=== PATIENT | male | born 1955 | race Caucasian/White ===

== ENCOUNTER 2021-09-25 08:58 | Emergency (ER) | payer BC, SELFPAY ==
[2021-09-25 08:59] VITALS: BP 153/85; PULSE 63; RESP 16; TEMP 36.8; O2SAT 100
--- NOTE | 2021-09-25 09:03 | ECG_ITS ---
Measurements Intervals [place] Rate: 69 P: 22 IL: 158 QRS: -1 QRSD: 84 T: 69 QT: 400 QTc: 429 Interpretive Statements SINUS RHYTHM WITH FREQUENT VENTRICULAR PREMATURE COMPLEXES IN A BIGEMINAL PATTERN ST DEVIATION AND MODERATE T-WAVE ABNORMALITY, CONSIDER LATERAL ISCHEMIA [-0.1+ mV T WAVE IN I/aVL/V5/V6] ABNORMAL ECG NO PREVIOUS ECG AVAILABLE FOR COMPARISON Electronically Signed On 09-25-2021 17:57:12 CDT by Mickey Bustamante M.D.
--- NOTE | 2021-09-25 09:15 | ED.ARRPALP ---
HPI - Arrhythmia/Palpitations General Chief Complaint: Arrhythmia/Palpitations Stated Complaint: Bigemeny Time Seen by Provider: 09/25/21 09:06 Source: patient History of Present Illness HPI narrative: 66-year-old male presents today from GI Lab. Patient was there to have a colonoscopy when he noted his pulse rate ranged from the 30s to the 70s. On their monitor patient showed bigeminy. Patient then sent here to the ER. Patient currently without any complaints. Denies shortness of breath, chest pain, jaw pain. Patient has noted he seems to be a little bit tired lately. Patient medical history includes hypertension and high cholesterol. Related Data Home Medications Medication Instructions Recorded Confirmed amlodipine-benazepril 1 cap PO DAILY 09/25/21 09/25/21 pravastatin 40 mg PO DAILY 09/25/21 09/25/21 Allergies Allergy/AdvReac Type Severity Reaction Status Date / Time No Known Allergies Allergy Verified 09/25/21 09:02 Review of Systems Review of Systems: CONSTITUTIONAL: Denies fever, chills, or sweats. seems more tired than usually. states he can fall asleep at work sitting down. EYES: Denies visual changes, redness, or discharge. ENT: Denies rhinorrhea, congestion, sore throat, or otalgia. CARDIOVASCULAR: Denies chest pain, palpitations, or edema. RESPIRATORY: Denies cough or dyspnea. GASTROINTESTINAL: Denies abdominal pain, nausea, vomiting, or diarrhea. GENITOURINARY: Denies dysuria or hematuria. SKIN: Denies rash or itching. MUSCULOSKELETAL: Denies back pain, joint pain, or myalgia. NEUROLOGIC: Denies headache, numbness, dizziness, or weakness. PSYCHIATRIC: Denies anxiety or depression. [facility] Social History Social History Smoking status: Never smoker Alcohol intake: current Substance use: never Substance use type: does not use Spiritual care concerns: No Exam Narrative: GENERAL: Well-appearing, well-nourished, and in no acute distress. HEAD: Normocephalic, atraumatic. EYES: PERRLA and EOMI. ENT: Nares clear, no rhinorrhea or epistaxis. Mucous membranes moist. Oropharynx without tonsillar hypertrophy exudate or other lesions. Bilateral TMs pearly patrick nonbulging NECK: Supple. No adenopathy or masses. No carotid bruits or JVD CHEST: Clear to auscultation. No respiratory distress. No wheezes rales or rhonchi HEART: Irregular rate and rhythm. No murmur heard. Normal peripheral pulses. ABDOMEN: Soft, nontender, nondistended, normal active bowel sounds. EXTREMITIES: Normal range of motion. No edema. SKIN: Warm, dry, no rash. NEURO: No focal deficits. Alert and oriented x3. PSYCH: Normal mood and affect. Course [employer]/PA Physician Supervision Labs reviewed. Patient says his bilirubin is always high. He is aware we are working on seeing if he can have his colonoscopy done. 1034 Patient aware colonoscopy will need to be rescheduled. Consultations Consultation #1: DR. Bustamante called. Case reviewed. At this time Dr. Bustamante is comfortable with the decision the ER makes. He says with asymptomatic bigimeny there was no need for him to see him at this time unless things changed. Date: 09/25/21 Time: 10:00 Vital Signs Vital signs: Vital Signs Temperature 36.8 C 09/25/21 08:59 Pulse Rate 63 09/25/21 08:59 Respiratory Rate 16 09/25/21 08:59 Blood Pressure 153/85 H 09/25/21 08:59 Pulse Oximetry 100 09/25/21 08:59 Temperature 36.8 C 09/25/21 08:59 Pulse Rate 70 09/25/21 10:47 Respiratory Rate 23 H 09/25/21 10:47 Blood Pressure 140/88 09/25/21 10:47 Pulse Oximetry 98 09/25/21 10:47 MDM - Arrhythmia/Palpitations MDM Narrative Medical decision making narrative: 66-year-old male HPI as noted. Presents today with intermittent bigeminy. Patient denies chest pain, shortness of breath, dizziness. Labs as noted. Cardiology consulted. At this time no further work-up needed Will discharge home with plan follow-u
[2021-09-25 09:25] LABS: Basophils Percent Auto 0.6 % (0.2-1.2); Eosinophils Absolute Auto 0.1 K/mm3 (0-0.3); Eosinophils Percent Auto 1.6 % (0-4.4); Hematocrit 42.6 % (42.0-52.0); Hemoglobin 14.3 g/dL (14.0-18.0); Immature Granulocyte Absolute 0.02 K/mm3 (0.00-0.031); Immature Granulocyte Percent A 0.3 % (0-0.5); Lymphocytes Absolute Auto 1.95 K/mm3 (0.9-3.2); Lymphocytes Percent Auto 28.4 % (18.3-44.2); Mean Corpuscular HGB Conc 33.6 g/dl (32-36); Mean Corpuscular Hemoglobin 30.4 pg (26-34); Mean Corpuscular Volume 90.4 fl (80-100); Mean Platelet Volume 12.3 fl (7.4-10.4); Monocytes Absolute Auto 0.7 K/mm3 (0.1-0.6); Monocytes Percent Auto 10.6 % (2.6-8.5); Neutrophils Percent Auto 58.5 % (45.5-73.1); Platelet Count Result 237 k/mm3 (150-375); Red Blood Count 4.71 M/mm3 (4.6-6.20); Red Cell Distribution Width 12.4 % (11.5-14.5); White Blood Count 6.9 K/mm3 (4.5-10.0)
[2021-09-25 09:34] LABS: Alanine Aminotransferase 27 U/L (4-50); Albumin Level 4.3 g/dL (3.5-5.1); Alkaline Phosphatase 56 U/L (38-126); Anion Gap 8 mmol/L (8-16); Aspartate Amino Transferase 29 U/L (17-59); Bilirubin,Total 2.7 mg/dL (0.2-1.3); Blood Urea Nitrogen 11 mg/dL (9-20); Calcium 8.7 mg/dL (8.4-10.2); Carbon Dioxide 25 mmol/L (22-30); Chloride 107 mmol/L (98-107); Estimated CRCL calculation 68 ml/min; Estimated Glomerular Filt Rate > 60; Glucose 117 mg/dL (65-110); Sodium 140 mmol/L (137-145)
--- NOTE | 2021-09-25 09:35 | PC.NURSE ---
pt states he does not feel anxious or stressed and is refusing Ativan.
[2021-09-25 09:55] VITALS: BP 139/86; PULSE 68; RESP 25; O2SAT 100
--- NOTE | 2021-09-25 09:56 | ECG_ITS ---
Measurements Intervals [place] Rate: 59 P: 37 IN: 165 QRS: 0 QRSD: 92 T: 68 QT: 450 QTc: 449 Interpretive Statements SINUS BRADYCARDIA WITH OCCASIONAL VENTRICULAR PREMATURE COMPLEXES NONSPECIFIC ST & T-WAVE ABNORMALITY BORDERLINE ECG COMPARED TO ECG 09/25/2021 09:04:34 VENTRICULAR BIGEMINY NOT APPRECIATED AND ST ABNORMALITY LESS PROMINENT Electronically Signed On 09-25-2021 18:00:53 CDT by Mickey Bustamante M.D.
[2021-09-25 10:47] VITALS: BP 140/88; PULSE 70; RESP 23; O2SAT 98
== END 2021-09-25 10:48 | disposition home or self-care (01) ==
PROVIDERS: Emergency Medicine; Emergency Provider Nurse Practitioner Family; PCP Internal Medicine
DX: R00.8 Other abnormalities of heart beat (principal)
CPT/HCPCS: 36415; 80053; 85025; 93005; 99283

== ENCOUNTER → 2021-09-25 12:05 | Day surgery (SDC) | payer BC, SELFPAY ==
[2021-09-12 08:16] VITALS: BMI 25.9
[2021-09-12 08:43] VITALS: BMI 25.9
[2021-09-25 08:33] VITALS: BP 147/95; PULSE 35; RESP 18; TEMP 36.8; O2SAT 100
--- NOTE | 2021-09-25 08:39 | PM.HPGS ---
History of Present Illness History of Present Illness Consent: Risks, benefits, and alternatives have been discussed and questions answered. Patient agrees to proceed with procedure. Chief complaint: neoplasm screening Narrative: Jacky Merlos is a 66 year old male referred for colon cancer screening. Review of Systems Review of Systems: All systems reviewed & are unremarkable except as noted in HPI and below PMFSH Social History Social History Smoking status: Never smoker Alcohol intake: current Substance use: never Substance use type: does not use Living arrangements: with family Spiritual care concerns: No Meds Home Medications and Allergies Home Medications Medication Instructions Recorded Confirmed Type amlodipine-benazepril 1 cap PO DAILY 09/25/21 09/25/21 History pravastatin 40 mg PO DAILY 09/25/21 09/25/21 History Allergies Allergy/AdvReac Type Severity Reaction Status Date / Time No Known Allergies Allergy Unverified 09/25/21 08:32 Vital Signs Vital Signs - 24 hr 09/25/21 08:33 Temperature 36.8 C Pulse Rate 35 L Respiratory Rate 18 Blood Pressure 147/95 H Pulse Oximetry 100 Exam Const: General: alert Orientation/consciousness: patient oriented x3 Resp: Auscultation: clear to auscultation bilaterally Cardio: Rhythm: regular rhythm GI: GI Palp: Yes Soft to palpation and No Tenderness to palpation present (GI) Neuro: General: patient oriented x3 Assessment and Plan Assessment and plan (1) Colon cancer screening: Code(s): Z12.11 - Encounter for screening for malignant neoplasm of colon Status: Acute Assessment and Plan: Colonoscopy with possible biopsy or polypectomy or cautery or injection of substances.
--- NOTE | 2021-09-25 08:42 | SUR.PREOP ---
Pt heart rate 35. Pt connected to monitor showing bigeminal PVC's. Dr. Rodriguez notified and in to see pt. Orders to send pt to ED per Dr. Rodriguez.
[2021-09-25] MEDS: LACTATED RINGERS 1,000 ML 150 ML IV CONT (08:55)
--- NOTE | 2021-09-25 09:03 | SUR.PREOP ---
Report given to ER physician by Dr Rodriguez. Report given to devulcanizer charger. Iv started and patient taken ER.
--- NOTE | 2021-09-25 14:16 | SUR.PREOP ---
09/25/21 1415 Called pt to follow up the cancellation of his procedure. Discussed with patient the reason for the cancellation specifically his low heart rate and the anesthesiologist's concerns on his safety of during his procedure. Inquired with patient about following up with a strip cutting machine operator. Patient stated he is going to follow up with a strip cutting machine operator. We discussed the need for that to be done before we could re-schedule him for his colonoscopy. Pt asked if he was going to get charged for the procedure and I told him he would not get charged for the procedure since we didn't do it with his condition. Patient voiced understanding. Offered for him to call if he had any further questions or concerns.
--- NOTE | 2021-09-26 11:57 | PC.NURSE ---
09/26/[address] Aragon's office called and nurse notified that pts. procedure was canceled due to bradycardia with bigeminal pvc's and sent to ER for evaluation. She said she had talked with patient after he was discharged and has sent in a referral for him to see cardiology. He will be rescheduled for colonoscopy once he is cleared with cardiology.
== END | disposition home or self-care (01) ==
PROVIDERS: PCP Internal Medicine; Visit Provider Internal Medicine Gastroenterology
DX: Z53.09 Procedure and treatment not carried out because of other contraindication (principal); Z12.11 Encounter for screening for malignant neoplasm of colon
CPT/HCPCS: 99213; G0463; J7120